=== PATIENT | female | born 1985 | race African-American/Black ===

== ENCOUNTER 2021-05-08 09:53 | Emergency (ER) | payer MEDICAID ==
[~2021-05-08] VITALS: Ht 157.5 cm; Wt 67.6 kg
--- NOTE | 2021-05-08 09:54 | NUR ---
pt BIBA to bed 10 via [facility].
[2021-05-08 10:00] VITALS: BP 130/95
--- NOTE | 2021-05-08 10:02 | NUR ---
Pt taken to restroom for UA collection via W/C.
--- NOTE | 2021-05-08 10:11 | NUR ---
Pt taken to ER bed 10 via [facility].
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
--- NOTE | 2021-05-08 10:19 | NUR ---
PATIENT TAKEN TO CT VIA [facility]
--- NOTE | 2021-05-08 10:30 | NUR ---
PATIENT RETURNED FROM CT VIA [facility]
--- NOTE | 2021-05-08 10:58 | NUR ---
PATIENT STATED SHE WANTS TO GO HOME. MD MADE AWARE. MD BEDSIDE WITH PATIENT
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
[2021-05-08 11:13] VITALS: BP 130/93
[2021-05-08 13:45] LABS: BARBITURATE, URINE NEGATIVE ng/ml (NEG <=200); BENZODIAZEPINE, URINE NEGATIVE ng/mL (NEG <=200); CANNABINOID, URINE POSITIVE ng/mL (NEG <=50); COCAINE, URINE NEGATIVE ng/mL (NEG <=300); OPIATE, URINE NEGATIVE ng/mL (NEG <=2000); PHENCYCLIDINE SCREEN,URINE NEGATIVE ng/mL (NEG <=25)
== END 2021-05-08 11:10 | disposition home or self-care (01) ==
LOC: MED 09:53
DX: R51.9 Headache, unspecified (principal); M79.10 Myalgia, unspecified site; V49.49XA Driver injured in collision with other motor vehicles in traffic accident, initial encounter; Y93.89 Activity, other specified; Y92.411 Interstate highway as the place of occurrence of the external cause; Y99.8 Other external cause status
CPT/HCPCS: 70450; 80305; 81025; 99284